=== PATIENT | male | born 1985 | race Hispanic/Latino ===

== ENCOUNTER 2018-05-29 05:11 | Emergency (ER) | payer OTHER ==
[2018-05-29] MEDS ORDERED: NACL 0.9% 1000 ML 1,000 ML IV ONE (05:16)
[2018-05-29] MEDS ORDERED: BOOSTRIX IM ONE (05:17)
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
[2018-05-29 05:29] LABS: Basophils # (Auto) 0.1 K/mm3 (0.0-0.1); Basophils % (Auto) 0.7 % (0.0-1.8); Eosinophils # (Auto) 0.2 K/mm3 (0.0-0.4); Eosinophils % (Auto) 2.3 % (0.0-4.3); Lymphocytes # (Auto) 1.5 K/mm3 (1.2-5.4); Lymphocytes % (Auto) 14.8 % (13.4-35.0); Mean Corpuscular HGB Conc 36 % (32-34); Mean Corpuscular Volume 84 fl (84-94); Monocytes # (Auto) 0.6 K/mm3 (0.0-0.8); Monocytes % (Auto) 5.7 % (0.0-7.3); Platelet Count 360 K/mm3 (140-440); Red Blood Count 4.97 M/mm3 (3.65-5.03); Red Cell Distribution Width 13.6 % (13.2-15.2)
[2018-05-29 05:40] LABS: BUN/Creatinine Ratio 23; Blood Urea Nitrogen 18 mg/dL (9-20); Calcium 9.8 mg/dL (8.4-10.2); Hemolysis Index 5; INR 0.96 (0.87-1.13)
[2018-05-29 05:41] LABS: Hematocrit 41.6 % (35.5-45.6); Partial Thromboplastin Time 25.8 Sec. (24.2-36.6)
[2018-05-29] MEDS ORDERED: MORPHINE IV ONE (05:57)
[2018-05-29] MEDS ORDERED: ZOFRAN IV ONE (05:58)
[2018-05-29] MEDS ORDERED: MORPHINE ONE (06:02)
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
--- NOTE | 2018-05-29 06:23 | Cat Scan Report ---
PROCEDURE: CT THORACIC SPINE WO CON TECHNIQUE: Computerized axial tomography of the thoracic spine was performed from C7 - L1 without co ntrast material. CT DOSE LENGTH PRODUCT: mGycm HISTORY: Trauma COMPARISONS: None . FINDINGS: The thoracic vertebrae are intact. There are no fractures or malalignments. There are mild multilevel degenerative disc changes. There is no spinal or foraminal stenosis. The facet joints are intact. Soft tissues are unremarkable. IMPRESSION: There are no fractures or malalignments. . This document is electronically signed by Jorge Sultana MD., May 29 2018 06:20:46 AM ET
[2018-05-29 06:30] LABS: Benzodiazepines Screen,Urine PRESUMPTIVE NEGATIVE; Cocaine Screen,Urine PRESUMPTIVE NEGATIVE; Methadone Screen,Urine PRESUMPTIVE NEGATIVE; Opiate Screen,Urine PRESUMPTIVE NEGATIVE
[2018-05-29 06:31] VITALS: BP 146/95
[2018-05-29 06:32] LABS: Bilirubin,Urine NEG (Negative); Blood,Urine LG (Negative); Color,Urine Yellow (Yellow); Mucus,Urine 2+ /HPF
--- NOTE | 2018-05-29 06:44 | XRay Report ---
PROCEDURE: XR FOOT 3+V LT TECHNIQUE: 3 portable views left foot HISTORY: injury COMPARISONS: None FINDINGS: No gross malalignment or deformity. Joint spaces are preserved no periosteal reaction or fracture. Os navicularis is noted. IMPRESSION: No acute left foot findings. This document is electronically signed by Joe Yee MD., May 29 2018 06:42:08 AM ET
[2018-05-29 06:45] LABS: Amphetamine Screen,Urine PRESUMPTIVE POSITIVE; Cannabinoid Screen,Urine PRESUMPTIVE POSITIVE
== END 2018-05-29 07:27 | disposition home or self-care (01) ==
LOC: ED 05:11
DX: R51 Headache (principal); M54.2 Cervicalgia; M54.89 Other dorsalgia; M79.645 Pain in left finger(s); M79.672 Pain in left foot; J45.909 Unspecified asthma, uncomplicated; F17.200 Nicotine dependence, unspecified, uncomplicated; F12.10 Cannabis abuse, uncomplicated; F15.10 Other stimulant abuse, uncomplicated; Z79.899 Other long term (current) drug therapy
CPT/HCPCS: 36415; 70450; 72125; 72128; 73630; 80048; 80307; 81001; 85025; 85610; 85730; 86850; 86900; 86901; 90471; 90715; 96374; 96375; 99285; G0480; J2270; J2405; J7030; 80320